=== PATIENT | female | born 1980 | race Caucasian/White ===

== ENCOUNTER 2017-02-18 23:53 | Emergency (ER) | payer OTHER ==
[2017-02-19] MEDS ORDERED: Lidocaine 1% 20 ML MDV INJECT ONE (00:02)
[2017-02-19] MEDS ORDERED: Diphtheria,Pertussis(Acell),Tetanus Vaccine 0.5 ML Syringe IM ONE (00:02)
--- NOTE | 2017-02-19 00:03 | EDM.PDOC ---
ED HPI GENERAL MEDICAL PROBLEM - General Chief Complaint: Laceration Stated Complaint: CUT FINGER Time Seen by Provider: 02/19/17 00:03 Source of Information: Reports: Patient - History of Present Illness INITIAL COMMENTS - FREE TEXT/NARRATIVE: HISTORY AND PHYSICAL: History of present illness: [] Patient cut her right index finger palmar aspect still phalanx 1.5 cm linear laceration, cut down a can while at work, wound bled well No fever nausea vomiting chills sweats Tendon function intact pre-and post suture flexor and extensor tendons intact again pre-and post Review of systems: As per history of present illness and below otherwise all systems reviewed and negative. Past medical history: As per history of present illness and as reviewed below otherwise noncontributory. Surgical history: As per history of present illness and as reviewed below otherwise noncontributory. Social history: No reported history of drug or alcohol abuse. Family history: As per history of present illness and as reviewed below otherwise noncontributory. Physical exam: HEENT: Atraumatic, normocephalic, pupils reactive, negative for conjunctival pallor or scleral icterus, mucous membranes moist, throat clear, neck supple, nontender, trachea midline. Lungs: Clear to auscultation, breath sounds equal bilaterally, chest nontender. Heart: S1S2, regular, negative for clicks, rubs, or JVD. Abdomen: Soft, nondistended, nontender. Negative for masses or hepatosplenomegaly. Negative for costovertebral tenderness. Pelvis: Stable nontender. Genitourinary: Deferred. Rectal: Deferred. Extremities: Atraumatic, negative for cords or calf pain. Neurovascular unremarkable. Neuro: Awake, alert, oriented. Cranial nerves II through XII unremarkable. Cerebellum unremarkable. Motor and sensory unremarkable throughout. Exam nonfocal. Diagnostics: [] Therapeutics: [] Tetanus status is updated Lidocaine #2 4-0 Prolene interrupted no complication no complaint Standard wound care Sutures out 10 days Impression: [] 1.5 cm linear laceration Definitive disposition and diagnosis as appropriate pending reevaluation and review of above. right index finger Pain Score (Numeric/FACES): 7 - Related Data Allergies Allergy/AdvReac Type Severity Reaction Status Date / Time No Known Allergies Allergy Verified 02/19/17 00:00 Home Meds: Home Meds OXcarbazepine [Oxcarbazepine] 300 mg PO BID 02/19/17 [History] Zonisamide [Zonegran] 400 mg PO BID 02/19/17 [History] ED ROS GENERAL - Review of Systems Review Of Systems: ROS reveals no pertinent complaints other than HPI. ED EXAM, SKIN/RASH Exam: See Below Course - Vital Signs Last Recorded V/S: Last Vital Signs Temp 36.7 C 02/19/17 00:01 Pulse 82 02/19/17 00:01 Resp 18 02/19/17 00:01 BP 135/92 H 02/19/17 00:01 Pulse Ox 98 02/19/17 00:01 - Orders/Labs/Meds Orders: Active Orders 24 hr Category Date Time Status Vaccines to be Administered [RC] PER UNIT ROUTINE Care 02/19/17 00:02 Ordered Meds: Medications Discontinued Medications Generic Name Dose Route Start Last Admin Trade Name Freq PRN Reason Stop Dose Admin Diphtheria/Tetanus/Acell Pertussis 0.5 ml 02/19/17 00:02 Adacel IM 02/19/17 00:03 .ONCE ONE Lidocaine HCl 20 ml 02/19/17 00:02 Xylocaine 1% INJECT 02/19/17 00:03 ONETIME ONE Departure - Departure Time of Disposition: 00:19 Disposition: Home, Self-Care 01 Condition: good Clinical Impression: Laceration - Discharge Information Forms: ED Department Discharge Additional Instructions: Standard wound care as instructed Keep wound clean and dry for 48 hours Bacitracin Telfa dressing Splint for comfort and protection Sutures out in 10 days Return to ER if redness warmth tenderness fever nausea vomiting chills sweats or pus drainage The following information is given to patients seen in the emergency department who are being discharged to home. This information is to outline your options for follow-up care. We provide all patients seen in our emergency department with a follow-up referral. The need for follow-up, as well as the timing and circumstances, are variable depending upon the specifics of your emergency department visit. If you don't have a primary care physician on staff, we will provide you with a referral. We always advise you to contact your personal physician following an emergency department visit to inform them of the circumstance of the visit and for follow-up with them and/or the need for any referrals to a consulting specialist. The emergency department will also refer you to a specialist when appropriate. This referral assures that you have the opportunity for follow-up care with a specialist. All of these measure are taken in an effort to provide you with optimal care, which includes your follow-up. Under all circumstances we always encourage you to contact your private physician who remains a resource for coordinating your care. When calling for follow-up care, please make the office aware that this follow-up is from your recent emergency room visit. If for any reason you are refused follow-up, please contact the [facility] emergency department at and asked to speak to the emergency department charge nurse. - My Orders Last 24 Hours: My Active Orders 02/19/17 00:02 Vaccines to be Administered [RC] PER UNIT ROUTINE - Assessment/Plan Last 24 Hours: My Active Orders 02/19/17 00:02 Vaccines to be Administered [RC] PER UNIT ROUTINE
[2017-02-19] MEDS ORDERED: Bacitracin Oint 1 GM U/D Packet TOP ONE (00:20)
[2017-02-19 00:48] VITALS: BP 167/99
== END 2017-02-19 00:40 | disposition home or self-care (01) ==
LOC: MW.ED 23:53
DX: S61.210A Laceration without foreign body of right index finger without damage to nail, initial encounter (principal); Y99.0 Civilian activity done for income or pay; Z23 Encounter for immunization; Z79.899 Other long term (current) drug therapy; W27.4XXA Contact with kitchen utensil, initial encounter
CPT/HCPCS: 12001; 90471; 90715; 99282; 99283-25

== ENCOUNTER 2018-03-12 11:37 | Emergency (ER) | payer OTHER ==
[2018-03-12 12:02] VITALS: BP 140/89
[2018-03-12 12:58] LABS: CHLORIDE,CL 104 mmol/L (98-107); SODIUM,NA 138 mmol/L (136-145)
--- NOTE | 2018-03-12 13:22 | EDM.PDOC ---
ED HPI GENERAL MEDICAL PROBLEM - General Chief Complaint: DIRECTOR SPECIALTY Problem Stated Complaint: 11 WEEKS WITH BLEEDING Time Seen by Provider: 03/12/18 11:42 - History of Present Illness INITIAL COMMENTS - FREE TEXT/NARRATIVE: HISTORY AND PHYSICAL: History of present illness: Patient is a 37-year-old female who presents to the emergency room today with complaints of vaginal bleeding during . She states yesterday evening she started to have some light spotting us morning. Denies any low back pain, cramping, nausea, vomiting, diarrhea, dysuria or constipation. Any fever, chills , chest pain or shortness of breath. She did see a provider at [facility] last week which confirmed . She believes she is approximately 11 weeks . 5, para 4. Denies any recent injury or trauma. Review of systems: As per history of present illness and below otherwise all systems reviewed and negative. Past medical history: As per history of present illness and as reviewed below otherwise noncontributory. Surgical history: As per history of present illness and as reviewed below otherwise noncontributory. Social history: No reported history of drug or alcohol abuse. Family history: As per history of present illness and as reviewed below otherwise noncontributory. Physical exam: General: Developed and well-nourished 37-year-old female. Alert and oriented. Nontoxic appearing and in no acute distress. HEENT: Atraumatic, normocephalic, pupils equal and reactive bilaterally, negative for conjunctival pallor or scleral icterus, mucous membranes moist, throat clear, neck supple, nontender, trachea midline. No drooling or trismus noted. No meningeal signs Lungs: Clear to auscultation, breath sounds equal bilaterally, chest nontender. Heart: S1S2, regular rate and rhythm without overt murmur Abdomen: Soft, nondistended, nontender. Negative for masses or hepatosplenomegaly. Negative for costovertebral tenderness. Pelvis: Stable nontender. Genitourinary: Declines. Rectal: Deferred. Skin: Intact, warm, dry. No lesions or rashes noted. Extremities: Atraumatic, negative for cords or calf pain. Neurovascular unremarkable. Neuro: Awake, alert, oriented. Cranial nerves II through XII unremarkable. Cerebellum unremarkable. Motor and sensory unremarkable throughout. Exam nonfocal. Notes: She has not previously had a ultrasound to confirm IUP. Lab work and transvaginal OB ultrasound will be conducted today. CBC and CMP are within normal limits with the exception of low potassium. AB/[place] [address]. Ultrasound shows intrauterine gestational sac and pole which correlates to 6 weeks gestational age. cardiac activity is not identified. This is suspicious for a failed early , however recommended hCG is ordered and will have [facility] followed this number closely. Due to the ER volume, was unable to do a pelvic exam upon her intial presentation, as all the beds were full. When an ER bed did open up to perform the pelvic exam portion, she declined - stating she was ready to "go home". Education was done on the importance of a pelvic exam, declines and would like to be discharged. Her labs and US were shared with the patient she voices understanding and is agreeable to plan of care. She denies any further questions at this time. Diagnostics: CBC, CMP, AB/Rh, transvaginal OB ultrasound Therapeutics: [] Impression: Threatened Plan: 1. Avoid placing anything in the vagina (sexual activity, tampons, etc...) until cleared by your OBGYN 2. Tylenol as needed for pain management. 3. Repeat Quantitative HCG needs to be done on : This can be done at [facility] or through our outpatient lab. Your OBGYN needs to follow this number closely, inform them of your visit and concerns. 4. Follow-up with your DIRECTOR SPECIALTY on Wednesday. Return to the ED as needed and as discussed. Definitive disposition and diagnosis as appropriate pending reevaluation and review of above. Duration: Day(s): Pelvic Pain Score (Numeric/FACES): 2 - Related Data Allergies Allergy/AdvReac Type Severity Reaction Status Date / Time No Known Allergies Allergy Verified 03/12/18 12:03 Home Meds: Home Meds OXcarbazepine [Oxcarbazepine] 300 mg PO BID 02/19/17 [History] Zonisamide [Zonegran] 400 mg PO BID 02/19/17 [History] Past Medical History DIRECTOR SPECIALTY History: Reports: Neurological History: Reports: Seizure - Infectious Disease History Infectious Disease History: Reports: Chicken Pox - Past Surgical History Female Surgical History: Reports: Section Neurological Surgical History: Reports: Other (See Below) Other Neurological Surgeries/Procedures: BRAIN TUMOR REMOVED Social & Family History - Family History Family Medical History: Noncontributory - Tobacco Use Smoking Status *Q: Never Smoker - Caffeine Use Caffeine Use: Reports: Coffee - Recreational Drug Use Recreational Drug Use: No ED ROS GENERAL - Review of Systems Review Of Systems: ROS reveals no pertinent complaints other than HPI. ED EXAM - Physical Exam Exam: See Below (See dictation) Course - Vital Signs Last Recorded V/S: Last Vital Signs Temp 97.9 F 03/12/18 11:58 Pulse 106 H 03/12/18 11:58 Resp 18 03/12/18 11:58 BP 140/89 03/12/18 11:58 Pulse Ox 99 03/12/18 11:58 - Orders/Labs/Meds Orders: Active Orders 24 hr Category Date Time Status OB Transvaginal [US] Stat Exams 03/12/18 11:46 Taken Labs: Laboratory Tests 03/12/18 03/12/18 03/12/18 Range/Units 12:06 12:06 12:06 WBC 9.40 (4.0-11.0) K/uL RBC 4.61 (4.30-5.90) M/uL Hgb 13.5 (12.0-16.0) g/dL Hct 38.0 (36.0-46.0) % MCV 82.4 (80.0-98.0) fL MCH 29.3 (27.0-32.0) pg MCHC 35.5 (31.0-37.0) g/dL RDW Std Deviation 39.4 (28.0-62.0) fl RDW Coeff of Marquis 13 (11.0-15.0) % Plt Count 178 (150-400) K/uL MPV 9.40 (7.40-12.00) fL Neut % (Auto) 75.1 (48.0-80.0) % Lymph % (Auto) 18.8 (16.0-40.0) % Carson % (Auto) 4.4 (0.0-15.0) % Eos % (Auto) 1.5 (0.0-7.0) % Baso % (Auto) 0.2 (0.0-1.5) % Neut # (Auto) 7.1 H (1.4-5.7) K/uL Lymph # (Auto) 1.8 (0.6-2.4) K/uL Carson # (Auto) 0.4 (0.0-0.8) K/uL Eos # (Auto) 0.1 (0.0-0.7) K/uL Baso # (Auto) 0.0 (0.0-0.1) K/uL Nucleated RBC % 0.0 /100WBC Nucleated RBCs # 0 K/uL Sodium 138 (136-145) mmol/L Potassium 3.2 L (3.5-5.1) mmol/L Chloride 104 (98-107) mmol/L Carbon Dioxide 22.5 (21.0-32.0) mmol/L BUN 11 (7.0-18.0) mg/dL Creatinine 0.9 (0.6-1.0) mg/dL Est Cr Clr Drug Dosing 79.34 mL/min Estimated GFR (MDRD) > 60.0 ml/min Glucose 137 H (74-106) mg/dL Calcium 8.6 (8.5-10.1) mg/dL Total Bilirubin 0.2 (0.2-1.0) mg/dL AST 13 L (15-37) IU/L ALT 19 (14-63) IU/L Alkaline Phosphatase 54 (46-116) U/L Total Protein 6.7 (6.4-8.2) g/dL Albumin 3.5 (3.4-5.0) g/dL Globulin 3.2 (2.0-3.5) g/dL Albumin/Globulin Ratio 1.1 L (1.3-2.8) HCG, Quant 45320.0 mIU/mL Blood Type A POSITIVE Departure - Departure Time of Disposition: 13:31 Disposition: Home, Self-Care 01 Clinical Impression: Threatened - Discharge Information Instructions: Threatened Miscarriage, [id number] Referrals: PCP,Unknown [Primary Care Provider] - Forms: ED Department Discharge Additional Instructions: The following information is given to patients seen in the emergency department who are being discharged to home. This information is to outline your options for follow-up care. We provide all patients seen in our emergency department with a follow-up referral. The need for follow-up, as well as the timing and circumstances, are variable depending upon the specifics of your emergency department visit. If you don't have a primary care physician on staff, we will provide you with a referral. We always advise you to contact your personal physician following an emergency department visit to inform them of the circumstance of the visit and for follow-up with them and/or the need for any referrals to a consulting specialist. The emergency department will also refer you to a specialist when appropriate. This referral assures that you have the opportunity for follow-up care with a specialist. All of these measure are taken in an effort to provide you with optimal care, which includes your follow-up. Under all circumstances we always encourage you to contact your private physician who remains a resource for coordinating your care. When calling for follow-up care, please make the office aware that this follow-up is from your recent emergency room visit. If for any reason you are refused follow-up, please contact the [facility] Emergency Department at and asked to speak to the emergency department charge nurse. [facility] [address] [place] [address] 1. Avoid placing anything in the vagina (sexual activity, tampons, etc...) until cleared by your OBGYN 2. Tylenol as needed for pain management. 3. Repeat Quantitative HCG needs to be done on : This can be done at [facility] or through our outpatient lab. Your OBGYN needs to follow this number closely, inform them of your visit and concerns. 4. Follow-up with your DIRECTOR SPECIALTY on Wednesday. Return to the ED as needed and as discussed. - My Orders Last 24 Hours: My Active Orders 03/12/18 11:46 OB Transvaginal [US] Stat - Assessment/Plan Last 24 Hours: My Active Orders 03/12/18 11:46 OB Transvaginal [US] Stat
--- NOTE | 2018-03-14 13:49 | US ---
EXAM DATE: 03/12/18 PATIENT'S AGE: 37 Patient: YANELY HSU Facility: [place], [place] Site . Site : 1980 Study: US OB Pelvis [id number]/[id number] 12:32:53 PM Ordering Physician: Doctor Lim Final Report: INDICATION: ABD PAIN/VAG BLEEDING 11 WEEKS TECHNIQUE: Scans performed with the transabdominal and endovaginal transducers. Grayscale, color Doppler and duplex Doppler images submitted. COMPARISON: None. FINDINGS: 1. There is an intrauterine gestational sac. Sac diameter is 1.3 cm which corresponds to 6 weeks 1 day. A tiny pole is seen measuring 3 mm in length which corresponds to 6 weeks 0 days. Definite cardiac activity is not seen. 2. According to the clinical dates, gestational age should be 11 weeks 1 day. 3. Both ovaries are normal size without masses or cysts. Normal vascularity in the ovaries. No free fluid. IMPRESSION: Intrauterine gestational sac and pole which correspond to approximately 6 weeks gestational age. cardiac activity is not identified. Findings are suspicious for failed early . However, recommend followup with beta HCG levels and repeat ultrasound in case the clinical dates are inaccurate. Dictated by Bernardo Hess MD @ 03/12/2018 1:28:52 PM Dictated by: Bernardo Hess MD @ 03/12/2018 13:28:57 (Electronic Signature) Report Signed by Proxy. HERB
== END 2018-03-12 13:41 | disposition home or self-care (01) ==
LOC: MW.ED 11:37
DX: O20.0 Threatened abortion (principal)
CPT/HCPCS: 36415; 76817; 76817-26; 80053; 84702; 85025; 86900; 86901; 99284-25

== ENCOUNTER 2019-03-14 16:32 | Inpatient (IN) | payer OTHER ==
[2019-03-14] MEDS ORDERED: Citric Acid/Sodium Citrate Solution 30 ML Cup PO ONE (18:55)
[2019-03-14] MEDS ORDERED: Sodium Chloride 0.9% 2.5 ML Syringe FLUSH PRN (18:55)
[2019-03-14] MEDS ORDERED: ceFAZolin 2 GM in Premix Bag 1 BAG IV ONE (18:55)
[2019-03-14] MEDS ORDERED: Sodium Chloride 0.9% 10 ML SDV IV PRN (18:55)
[2019-03-14] MEDS ORDERED: Sodium Chloride 0.9% 10 ML Syringe FLUSH PRN (18:55)
[2019-03-14] MEDS ORDERED: Oxytocin/0.9 % Sodium Chloride 30 UNIT/500 ML BAG IV SCH (19:00)
[2019-03-14] MEDS: Lactated Ringers 1,000 ML IV SCH ×2 (19:51→20:28)
--- NOTE | 2019-03-14 19:59 | PCM.PREANE ---
Preanesthetic Assessment - Anesthesia/Transfusion/Family Hx Anesthesia History: Prior Anesthesia Without Reaction Transfusion History: No Prior Transfusion(s) - Review of Systems General: No Symptoms Pulmonary: Cough Cardiovascular: No Symptoms Gastrointestinal: No Symptoms Neurological: No Symptoms Other: Reports: None - Physical Assessment Height: 1.65 m Weight: 105.233 kg ASA Class: 3E Mental Status: Alert & Oriented x3 Airway Class: Mallampati = 3 Dentition: Reports: [place](s) Thyro-Mental Finger Breadths: 3 Mouth Opening Finger Breadths: 3 ROM/Head Extension: Full Lungs: Clear to Auscultation, Normal Respiratory Effort Cardiovascular: Regular Rate, Regular Rhythm - Lab Values: Laboratory Last Values WBC 8.94 K/uL (4.0-11.0) 03/14/19 18:12 RBC 3.94 M/uL (4.30-5.90) L 03/14/19 18:12 Hgb 11.8 g/dL (12.0-16.0) L 03/14/19 18:12 Hct 34.8 % (36.0-46.0) L 03/14/19 18:12 MCV 88.3 fL (80.0-98.0) 03/14/19 18:12 MCH 29.9 pg (27.0-32.0) 03/14/19 18:12 MCHC 33.9 g/dL (31.0-37.0) 03/14/19 18:12 RDW Std Deviation 45.3 fl (28.0-62.0) 03/14/19 18:12 RDW Coeff of Marquis 14 % (11.0-15.0) 03/14/19 18:12 Plt Count 202 K/uL (150-400) 03/14/19 18:12 MPV 11.40 fL (7.40-12.00) 03/14/19 18:12 Nucleated RBC % 0.0 /100WBC 03/14/19 18:12 Nucleated RBCs # 0 K/uL 03/14/19 18:12 Urine Color YELLOW 03/14/19 16:35 Urine Appearance CLEAR 03/14/19 16:35 Urine pH 7.0 (5.0-8.0) 03/14/19 16:35 Ur Specific Fellows 1.020 (1.001-1.035) 03/14/19 16:35 Urine Protein TRACE mg/dL (NEGATIVE) H 03/14/19 16:35 Urine Glucose (UA) NEGATIVE mg/dL (NEGATIVE) 03/14/19 16:35 Urine Ketones NEGATIVE mg/dL (NEGATIVE) 03/14/19 16:35 Urine Occult Blood NEGATIVE (NEGATIVE) 03/14/19 16:35 Urine Nitrite NEGATIVE (NEGATIVE) 03/14/19 16:35 Urine Bilirubin NEGATIVE (NEGATIVE) 03/14/19 16:35 Urine Urobilinogen 0.2 EU/dL (<2.0) 03/14/19 16:35 Ur Leukocyte Esterase TRACE (NEGATIVE) H 03/14/19 16:35 - Allergies Allergies/Adverse Reactions: Allergies Allergy/AdvReac Type Severity Reaction Status Date / Time No Known Allergies Allergy Verified 03/14/19 16:53 - Anesthesia Plan Pre-Op Medication Ordered: Antacids (Bicitra. ) - Acknowledgements Anesthesia Type Planned: Spinal (risks and benefits of spinal anesthesia discussed in great details, including possible conversion to general anesthesia if spinal is inadequate. All questions answered, consent signed. 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: Musculoskeletal History: Reports: None Neurological History: Reports: Seizure (petit mal-"daily and not controlled", grand mal seizure, none for 7 years.) Psychiatric History: Reports: None Endocrine/Metabolic History: Reports: Obesity/BMI 30+ Hematologic History: Reports: None Immunologic History: Reports: None Oncologic (Cancer) History: Reports: None Dermatologic History: Reports: None - Infectious Disease History Infectious Disease History: Reports: Chicken Pox - Past Surgical History Head Surgeries/Procedures: Reports: Other (See Below) HEENT Surgical History: Reports: Oral Surgery Cardiovascular Surgical History: Reports: None Respiratory Surgical History: Reports: None GI Surgical History: Reports: None Female Surgical History: Reports: Section Endocrine Surgical History: Reports: None Neurological Surgical History: Reports: Other (See Below) Other Neurological Surgeries/Procedures: BRAIN TUMOR REMOVED Musculoskeletal Surgical History: Reports: None Oncologic Surgical History: Reports: None Dermatological Surgical History: Reports: None - SUBSTANCE USE Smoking Status *Q: Never Smoker Days Per Week of Alcohol Use: 0 Recreational Drug Use History: No - HOME MEDS Home Medications: Home Meds OXcarbazepine [Oxcarbazepine] 300 mg PO BID 02/19/17 [History] Zonisamide [Zonegran] 400 mg PO BID 02/19/17 [History] Alive Multivitamin 1 tab PO DAILY 03/14/19 [History] Calcium Carb/Vit D3/Minerals [Calcium 600+D Plus Minerals] 1 tab PO DAILY [History] Calcium Carbonate [Tums] 1 tab.chew CHEW ASDIRECTED PRN 03/14/19 [History] Vitamin E 1 tab PO DAILY 03/14/19 [History] - CURRENT (IN HOUSE) MEDS Current Meds: Current Medications Oxytocin/Sodium Chloride (Oxytocin 30 Unit/500 Ml-Ns) 30 unit in 500 mls @ 250 mls/hr IV TITRATE KIANNA Lactated Ringer's (Ringers, Lactated) 1,000 mls @ 500 mls/hr IV BOLUS KIANNA Sodium Chloride (Saline Flush) 10 ml FLUSH ASDIRECTED PRN PRN Reason: Keep Vein Open Sodium Chloride (Saline Flush) 2.5 ml FLUSH ASDIRECTED PRN PRN Reason: Keep Vein Open Sodium Chloride (Normal Saline) 10 ml IV ASDIRECTED PRN PRN Reason: IV Use Discontinued Medications Citric Acid/Sodium Citrate (Bicitra Solution) 30 ml PO ONETIME ONE Stop: 03/14/19 18:56 Cefazolin Sodium/Dextrose 2 gm (/ Premix) 50 mls @ 100 mls/hr IV ONETIME ONE Stop: 03/14/19 19:24
[2019-03-14] MEDS ORDERED: Scopolamine 1.5 MG Transdermal Patch ONE (20:15)
--- NOTE | 2019-03-14 20:17 | PCM.LDHP ---
L&D History of Present Illness - General Date of Service: 03/14/19 Admit Problem/Dx: Patient Status Order with Admit Dx/Problem 03/14/19 16:54 Patient Status [ADT] Routine 03/14/19 19:00 Patient Status [ADT] Routine Admission Diagnosis/Problem Admission Diagnosis/Problem Planned 03/14/19 20:14 38yo EDC 37 6/7wks PIH, A+, R-equivocal, GBS pos. RCS Source of Information: Patient History Limitations: Reports: No Limitations - History of Present Illness Improves with: Reports: None Worsens with: Reports: None Associated Symptoms: Reports: N - Related Data Allergies/Adverse Reactions: Allergies Allergy/AdvReac Type Severity Reaction Status Date / Time No Known Allergies Allergy Verified 03/14/19 16:53 Home Medications: Home Meds OXcarbazepine [Oxcarbazepine] 300 mg PO BID 02/19/17 [History] Zonisamide [Zonegran] 400 mg PO BID 02/19/17 [History] Alive Multivitamin 1 tab PO DAILY 03/14/19 [History] Calcium Carb/Vit D3/Minerals [Calcium 600+D Plus Minerals] 1 tab PO DAILY [History] Calcium Carbonate [Tums] 1 tab.chew CHEW ASDIRECTED PRN 03/14/19 [History] Vitamin E 1 tab PO DAILY 03/14/19 [History] Past Medical History HEENT History: Reports: Other (See Below) Other HEENT History: wears glasses Cardiovascular History: Reports: None Respiratory History: Reports: None Gastrointestinal History: Reports: Other (See Below) Other Gastrointestinal History: heartburn during Genitourinary History: Reports: None 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: Musculoskeletal History: Reports: None Neurological History: Reports: Seizure (petit mal-"daily and not controlled", grand mal seizure, none for 7 years.) Psychiatric History: Reports: None Endocrine/Metabolic History: Reports: Obesity/BMI 30+ Hematologic History: Reports: None Immunologic History: Reports: None Oncologic (Cancer) History: Reports: None Dermatologic History: Reports: None - Infectious Disease History Infectious Disease History: Reports: Chicken Pox - Past Surgical History Head Surgeries/Procedures: Reports: Other (See Below) HEENT Surgical History: Reports: Oral Surgery Cardiovascular Surgical History: Reports: None Respiratory Surgical History: Reports: None GI Surgical History: Reports: None Female Surgical History: Reports: Section Endocrine Surgical History: Reports: None Neurological Surgical History: Reports: Other (See Below) Other Neurological Surgeries/Procedures: BRAIN TUMOR REMOVED Musculoskeletal Surgical History: Reports: None Oncologic Surgical History: Reports: None Dermatological Surgical History: Reports: None Social & Family History - Family History Family Medical History: Noncontributory - Tobacco Use Smoking Status *Q: Never Smoker - Caffeine Use Caffeine Use: Reports: Coffee - Alcohol Use Days Per Week of Alcohol Use: 0 - Recreational Drug Use Recreational Drug Use: No H&P Review of Systems - Review of Systems: Review Of Systems: See Below General: Reports: No Symptoms HEENT: Reports: No Symptoms Pulmonary: Reports: No Symptoms Cardiovascular: Reports: No Symptoms Gastrointestinal: Reports: No Symptoms Genitourinary: Reports: No Symptoms Musculoskeletal: Reports: No Symptoms Skin: Reports: No Symptoms Psychiatric: Reports: No Symptoms Neurological: Reports: No Symptoms Hematologic/Lymphatic: Reports: No Symptoms Immunologic: Reports: No Symptoms L&D Exam - Exam Exam: See Below - Vital Signs Weight: 105.233 kg - OB Specific Contraction Intensity: Mild Movement: Active Heart Tones: Present Heart Rate (FHR) Variability: Moderate (6-25 bmp) Presentation: Vertex - Exam General: Alert, Oriented, Cooperative HEENT: Hearing Intact Lungs: Normal Respiratory Effort GI/Abdominal Exam: Soft, Non-Tender Rectal Exam: Deferred Genitourinary: Deferred. No: Cervical fluid, Vaginal bleeding Back Exam: Normal Inspection, Full Range of Motion Extremities: Normal Inspection, Normal Range of Motion, Non-Tender, No Pedal Edema Skin: Warm, Dry, Intact Neurological: Reflexes Equal Bilateral, Strength Equal Bilateral, Normal Gait, Normal Speech, Normal Tone, Sensation Intact Psychiatric: Alert, Normal Affect, Normal Mood - Patient Data Lab Results Last 24 hrs: Laboratory Results - last 24 hr 03/14/19 03/14/19 Range/Units 16:35 18:12 WBC 8.94 (4.0-11.0) K/uL RBC 3.94 L (4.30-5.90) M/uL Hgb 11.8 L (12.0-16.0) g/dL Hct 34.8 L (36.0-46.0) % MCV 88.3 (80.0-98.0) fL MCH 29.9 (27.0-32.0) pg MCHC 33.9 (31.0-37.0) g/dL RDW Std Deviation 45.3 (28.0-62.0) fl RDW Coeff of Marquis 14 (11.0-15.0) % Plt Count 202 (150-400) K/uL MPV 11.40 (7.40-12.00) fL Nucleated RBC % 0.0 /100WBC Nucleated RBCs # 0 K/uL Urine Color YELLOW Urine Appearance CLEAR Urine pH 7.0 (5.0-8.0) Ur Specific [place] 1.020 (1.001-1.035) Urine Protein TRACE H (NEGATIVE) mg/dL Urine Glucose (UA) NEGATIVE (NEGATIVE) mg/dL Urine Ketones NEGATIVE (NEGATIVE) mg/dL Urine Occult Blood NEGATIVE (NEGATIVE) Urine Nitrite NEGATIVE (NEGATIVE) Urine Bilirubin NEGATIVE (NEGATIVE) Urine Urobilinogen 0.2 (<2.0) EU/dL Ur Leukocyte Esterase TRACE H (NEGATIVE) Result Diagrams: 03/14/19 18:12 - Problem List (1) Supervision of normal IUP (intrauterine ) in multigravida SNOMED Code(s): 227426112, 727869343, 362008066 ICD Code: Z34.80 - ENCOUNTER FOR SUPRVSN OF NORMAL , UNSP TRIMESTER Status: Acute Priority: High Current Visit: Yes Qualifiers: Trimester: third trimester Qualified Code(s): Z34.83 - Encounter for supervision of other normal , third trimester (2) History of delivery, currently SNOMED Code(s): 713817272, 004084917 ICD Code: O34.219 - MATERNAL CARE FOR UNSP TYPE SCAR FROM PREVIOUS DEL Status: Acute Priority: High Current Visit: Yes (3) Hypertension affecting in third trimester SNOMED Code(s): 882028053, 536233235 ICD Code: O16.3 - UNSPECIFIED MATERNAL HYPERTENSION, THIRD TRIMESTER Status : Acute Priority: High Current Visit: Yes Problem List Initiated/Reviewed/Updated: Yes Orders Last 24hrs: Active Orders 24 hr Category Date Time Status Patient Status [ADT] Routine ADT 03/14/19 16:54 Active Patient Status [ADT] Routine ADT 03/14/19 19:00 Active Non Stress Test [RC] PER UNIT ROUTINE Care 03/14/19 16:54 Active Non Stress Test [RC] PER UNIT ROUTINE Care 03/14/19 19:00 Active Notify Provider Vital Signs [RC] PRN Care 03/14/19 19:02 Active Procedure Site Prep Instruct [RC] ASDIRECTED Care 03/14/19 19:00 Active Up ad Katie [RC] ASDIRECTED Care 03/14/19 16:54 Active Up ad Katie [RC] ASDIRECTED Care 03/14/19 19:00 Active Vaginal Exam [RC] Click to Edit Care 03/14/19 16:54 Active Verify Patient Consent Obtain [RC] ASDIRECTED Care 03/14/19 19:00 Active Vital Signs [RC] PER UNIT ROUTINE Care 03/14/19 16:54 Active Vital Signs [RC] PER UNIT ROUTINE Care 03/14/19 19:00 Active TYPE AND SCREEN [BBK] Routine Lab 03/14/19 19:37 Received Lactated Ringers [Ringers, Lactated] 1,000 ml Med 03/14/19 19:00 Active IV BOLUS Oxytocin/0.9 % Sodium Chloride [Oxytocin 30 Unit/500 ML Med 03/14/19 19:00 Active -NS] 30 unit in 500 ml IV TITRATE Sodium Chloride 0.9% [Normal Saline] Med 03/14/19 18:55 Active 10 ml IV ASDIRECTED PRN Sodium Chloride 0.9% [Saline Flush] Med 03/14/19 18:55 Active 10 ml FLUSH ASDIRECTED PRN Sodium Chloride 0.9% [Saline Flush] Med 03/14/19 18:55 Active 2.5 ml FLUSH ASDIRECTED PRN Peripheral IV Insertion Adult [OM.PC] Routine Oth 03/14/19 19:00 Ordered Schedule Procedure [COMM] Per Unit Routine Oth 03/14/19 19:00 Ordered Resuscitation Status Routine Resus Stat 03/14/19 18:55 Ordered Medication Orders Oxytocin/Sodium Chloride (Oxytocin 30 Unit/500 Ml-Ns) 30 unit in 500 mls @ 250 mls/hr IV TITRATE KIANNA Lactated Ringer's (Ringers, Lactated) 1,000 mls @ 500 mls/hr IV BOLUS KIANNA Last Admin: 03/14/19 19:51 Dose: 500 mls/hr Sodium Chloride (Saline Flush) 10 ml FLUSH ASDIRECTED PRN PRN Reason: Keep Vein Open Sodium Chloride (Saline Flush) 2.5 ml FLUSH ASDIRECTED PRN PRN Reason: Keep Vein Open Sodium Chloride (Normal Saline) 10 ml IV ASDIRECTED PRN PRN Reason: IV Use Assessment/Plan Comment:: RCS A: 38yo EDC 37 6/7wks PIH, A+, R-equivocal, GBS pos. RCS P: Admit, repeat C/S.
[2019-03-14] MEDS ORDERED: Morphine PF 10 MG/10 ML SDV ONE (20:25)
[2019-03-14] MEDS ORDERED: ceFAZolin 1 GM Vial ONE (20:31)
[2019-03-14] MEDS ORDERED: Acetaminophen/oxyCODONE 325-5 MG Tab PO PRN ×3 (21:09→21:28)
[2019-03-14] MEDS ORDERED: Nalbuphine 10 MG/1 ML Vial IVPUSH PRN (21:09)
[2019-03-14] MEDS ORDERED: fentaNYL 100 MCG/2 ML SDV IVPUSH PRN (21:09)
[2019-03-14] MEDS ORDERED: Oxytocin 10 Units/1 ML SDV ONE (21:14)
[2019-03-14] MEDS ORDERED: Ondansetron 4 MG/2 ML SDV ONE (21:18)
[2019-03-14] MEDS ORDERED: Octyl 2-Cyanoacrylate 1 Tube ONE (21:18)
[2019-03-14] MEDS ORDERED: Ketorolac 30 MG/ML SDV ONE (21:18)
[2019-03-14] MEDS ORDERED: diphenhydrAMINE 50 MG/ML SDV IVPUSH PRN (21:28)
[2019-03-14] MEDS ORDERED: Ibuprofen 800 MG Tab PO PRN (21:28)
[2019-03-14] MEDS ORDERED: Ondansetron 4 MG/2 ML SDV IVPUSH PRN (21:28)
[2019-03-14] MEDS ORDERED: Bisacodyl 10 MG Supp RECTAL PRN (21:28)
[2019-03-14] MEDS ORDERED: Lanolin 100% Cream 7 GM Tube TOP PRN (21:28)
[2019-03-14] MEDS ORDERED: Acetaminophen/oxyCODONE 325-5 MG Tab PO ONE (21:30)
[2019-03-14] MEDS ORDERED: Lactated Ringers 1,000 ML IV SCH (21:30)
--- NOTE | 2019-03-14 21:31 | PCM.OPNOTE ---
- General Post-Op/Procedure Note Date of Surgery/Procedure: 03/14/19 Operative Procedure(s): Repeat C/section. Pre Op Diagnosis: IUP37+5, previous C/section. Post-Op Diagnosis: Same Anesthesia Technique: Spinal Primary Surgeon: Alonso Pryor Spray Gun Repairer Helper: Noreen Munoz EBL in mLs: 600 Complications: None Condition: Good
--- NOTE | 2019-03-14 22:17 | PCM.POSTAN ---
POST ANESTHESIA ASSESSMENT - MENTAL STATUS Mental Status: Alert, Oriented - RESPIRATORY Respiratory Status: Respiratory Rate WNL, Airway Patent, O2 Saturation Stable - CARDIOVASCULAR CV Status: Pulse Rate WNL, Blood Pressure Stable - GASTROINTESTINAL GI Status: No Symptoms - POST OP HYDRATION Hydration Status: Adequate & Stable - OBSERVATIONS Free Text/Narrative:: The patient has no complaints at this time. There were no apparent anesthetic complications at this time .
--- NOTE | 2019-03-14 22:42 | OR ---
SURGEON: Alonso Pryor MD DATE OF PROCEDURE: 03/14/2019 PREOPERATIVE DIAGNOSES: 1. Intrauterine 37 plus 5. 2. Previous section. 3. Nonreactive NST. 4. Elevated blood pressure. OPERATION PERFORMED: Repeat low-transverse section. PRIMARY SURGEON: Alonso Pryor MD. GIFTED TEACHER: Noreen Munoz. ANESTHESIA: Spinal, Dr. Gonzalez. ESTIMATED BLOOD LOSS: 600 mL. COMPLICATIONS: None. FINDING: Male fetus. score reported 8 and 9. Normal uterus, tubes, and ovaries. INDICATION: This patient has advanced maternal age of 38. She had a previous section and she had two previous vaginal deliveries, she elected to have a repeat section in this and she is scheduled for elective repeat next Wednesday. However, the patient today is in the clinic, and she has elevated blood pressure, her blood pressure is 170/102. She was sent to Labor and Delivery for monitoring and blood pressure continued to be fluctuated up and down. However, the patient has a nonreactive NST. Because of this situation, I elected after discussed with the patient and her and they consented to go ahead and repeat her section today. PROCEDURE IN DETAIL: The patient was brought to the OR, properly identified. After adequate level of spinal anesthesia with a Whitten catheter in the bladder, patient was prepped and draped in sterile fashion as usual. Low transverse Pfannenstiel skin incision done. Evin fascia and rectus fascia were opened in the direction of the incision. The 2 recti muscles . Peritoneal cavity was entered. Bladder flap was raised in the usual manner pushing the bladder away from the lower uterine segment. A low transverse uterine incision was done and extended manually with the hand. The fetus was in a vertex position, delivered without any problem, cried immediately, handed to the farm laborer who was present at the time of the delivery. The score later on reported to be 8 and 9. The weight is not available. The placenta delivered spontaneous, complete, and intact, and repair of the lower uterine segment done with 2-0 Vicryl continuous interlocking in 2 layers. Reperitonealization done with 3-0 Vicryl continuous. The peritoneal cavity was evacuated completely from all blood and blood clot and closed with 3-0 Vicryl continuous. The rectus fascia was closed with #1 PDS double strand continuous, and the Evin's fascia with 3-0 Vicryl continuous. The skin closed with skin clips, Insorb, and Dermabond. Instrument and sponge count was correct. The patient tolerated the procedure well, went to recovery room in stable general condition. STANISLAW HERNANDEZ /[id number]
[2019-03-15] MEDS: Ketorolac 30 MG/ML SDV IVPUSH SCH ×5 (03:49→20:30)
--- NOTE | 2019-03-15 06:32 | PCM48HPAN ---
Post Anesthesia Note - EVALUATION WITHIN 48HRS OF ANESTHETIC Vital Signs in Normal Range: Yes Patient Participated in Evaluation: Yes Respiratory Function Stable: Yes Airway Patent: Yes Cardiovascular Function Stable: Yes Hydration Status Stable: Yes Pain Control Satisfactory: Yes Nausea and Vomiting Control Satisfactory: Yes Mental Status Recovered: Yes Resp Rate: 16 - COMMENTS/OBSERVATIONS Free Text/Narrative:: The patient has no complaints, other than itching. There were no apparent anesthetic complications at this time.
--- NOTE | 2019-03-15 08:32 | PCM.PNPP ---
- General Info Date of Service: 03/15/19 Admission Dx/Problem (Free Text): Patient Status Order with Admit Dx/Problem 03/14/19 16:54 Patient Status [ADT] Routine 03/14/19 19:00 Patient Status [ADT] Routine Admission Diagnosis/Problem Admission Diagnosis/Problem Planned 03/14/19 20:14 38yo EDC 37 6/7wks PIH, A+, R-equivocal, GBS pos. RCS Functional Status: Reports: Pain Controlled, Tolerating Diet, Other (gonzales) - Review of Systems General: Reports: No Symptoms HEENT: Reports: No Symptoms Pulmonary: Reports: No Symptoms Cardiovascular: Reports: No Symptoms Gastrointestinal: Reports: No Symptoms Genitourinary: Reports: No Symptoms Musculoskeletal: Reports: No Symptoms Skin: Reports: No Symptoms Neurological: Reports: No Symptoms Psychiatric: Reports: No Symptoms - General Info Date of Service: 03/15/19 - Patient Data Vital Signs - Most Recent: Last Vital Signs Temp 36.6 C 03/15/19 07:15 Pulse 68 03/15/19 07:15 Resp 18 03/15/19 07:15 BP 137/76 03/15/19 07:15 Pulse Ox 94 L 03/15/19 07:15 Weight - Most Recent: 105.233 kg I&O - Last 24 Hours: Intake & Output 03/14/19 03/15/19 03/15/19 22:59 06:59 14:59 Intake Total 1650 Output Total 250 500 Balance 1400 -500 Lab Results - Last 24 Hours: Laboratory Results - last 24 hr 03/14/19 03/14/19 03/14/19 Range/Units 16:35 18:12 19:37 WBC 8.94 (4.0-11.0) K/uL RBC 3.94 L (4.30-5.90) M/uL Hgb 11.8 L (12.0-16.0) g/dL Hct 34.8 L (36.0-46.0) % MCV 88.3 (80.0-98.0) fL MCH 29.9 (27.0-32.0) pg MCHC 33.9 (31.0-37.0) g/dL RDW Std Deviation 45.3 (28.0-62.0) fl RDW Coeff of Marquis 14 (11.0-15.0) % Plt Count 202 (150-400) K/uL MPV 11.40 (7.40-12.00) fL Nucleated RBC % 0.0 /100WBC Nucleated RBCs # 0 K/uL Urine Color YELLOW Urine Appearance CLEAR Urine pH 7.0 (5.0-8.0) Ur Specific [place] 1.020 (1.001-1.035) Urine Protein TRACE H (NEGATIVE) mg/dL Urine Glucose (UA) NEGATIVE (NEGATIVE) mg/dL Urine Ketones NEGATIVE (NEGATIVE) mg/dL Urine Occult Blood NEGATIVE (NEGATIVE) Urine Nitrite NEGATIVE (NEGATIVE) Urine Bilirubin NEGATIVE (NEGATIVE) Urine Urobilinogen 0.2 (<2.0) EU/dL Ur Leukocyte Esterase TRACE H (NEGATIVE) Blood Type A POSITIVE Antibody Screen NEGATIVE 03/15/19 Range/Units 05:45 WBC (4.0-11.0) K/uL RBC (4.30-5.90) M/uL Hgb 10.6 L (12.0-16.0) g/dL Hct 31.7 L (36.0-46.0) % MCV (80.0-98.0) fL MCH (27.0-32.0) pg MCHC (31.0-37.0) g/dL RDW Std Deviation (28.0-62.0) fl RDW Coeff of Marquis (11.0-15.0) % Plt Count (150-400) K/uL MPV (7.40-12.00) fL Nucleated RBC % /100WBC Nucleated RBCs # K/uL Urine Color Urine Appearance Urine pH (5.0-8.0) Ur Specific [place] (1.001-1.035) Urine Protein (NEGATIVE) mg/dL Urine Glucose (UA) (NEGATIVE) mg/dL Urine Ketones (NEGATIVE) mg/dL Urine Occult Blood (NEGATIVE) Urine Nitrite (NEGATIVE) Urine Bilirubin (NEGATIVE) Urine Urobilinogen (<2.0) EU/dL Ur Leukocyte Esterase (NEGATIVE) Blood Type Antibody Screen Med Orders - Current: Current Medications Bisacodyl (Dulcolax) 10 mg RECTAL ONETIME PRN PRN Reason: Constipation Diphenhydramine HCl (Benadryl) 25 mg IVPUSH Q6H PRN PRN Reason: Itching or Nausea Docusate Sodium (Colace) 100 mg PO BID ON LICENSE OF [facility] Emollient Ointment (Lansinoh Hpa) 0 gm TOP ASDIRECTED PRN PRN Reason: Sore Nipples Fentanyl (Sublimaze) 50 mcg IVPUSH Q5M PRN PRN Reason: Pain (severe 7-10) Stop: 03/15/19 21:10 Oxytocin/Sodium Chloride (Oxytocin 30 Unit/500 Ml-Ns) 30 unit in 500 mls @ 250 mls/hr IV TITRATE ON LICENSE OF [facility] Lactated Ringer's (Ringers, Lactated) 1,000 mls @ 500 mls/hr IV BOLUS ON LICENSE OF [facility] Last Admin: 03/14/19 20:28 Dose: 500 mls/hr Lactated Ringer's (Ringers, Lactated) 1,000 mls @ 125 mls/hr IV ASDIRECTED ON LICENSE OF [facility] Last Admin: 03/15/19 00:47 Dose: 125 mls/hr Ibuprofen (Motrin) 800 mg PO Q8H PRN PRN Reason: mild pain or fever Ketorolac Tromethamine (Toradol) 30 mg IVPUSH Q6H ON LICENSE OF [facility] Stop: 03/15/19 21:31 Last Admin: 03/15/19 03:49 Dose: 30 mg Nalbuphine HCl (Nubain) 2.5 mg IVPUSH Q3H PRN PRN Reason: Pruritis Stop: 03/15/19 21:10 Ondansetron HCl (Zofran) 4 mg IVPUSH Q4H PRN PRN Reason: Nausea/Vomiting Oxycodone/Acetaminophen (Percocet 325-5 Mg) 1 tab PO Q4H PRN PRN Reason: Pain (moderate 4-6) Oxycodone/Acetaminophen (Percocet 325-5 Mg) 2 tab PO Q4H PRN PRN Reason: Pain (moderate 4-6) Sodium Chloride (Saline Flush) 10 ml FLUSH ASDIRECTED PRN PRN Reason: Keep Vein Open Sodium Chloride (Saline Flush) 2.5 ml FLUSH ASDIRECTED PRN PRN Reason: Keep Vein Open Sodium Chloride (Normal Saline) 10 ml IV ASDIRECTED PRN PRN Reason: IV Use Discontinued Medications Cefazolin Sodium (Ancef) Confirm Administered Dose 2 gm .ROUTE .STK-MED ONE Stop: 03/14/19 20:32 Citric Acid/Sodium Citrate (Bicitra Solution) 30 ml PO ONETIME ONE Stop: 03/14/19 18:56 Last Admin: 03/14/19 20:06 Dose: 30 ml Cefazolin Sodium/Dextrose 2 gm (/ Premix) 50 mls @ 100 mls/hr IV ONETIME ONE Stop: 03/14/19 19:24 Ibuprofen (Motrin) 800 mg PO Q8H PRN PRN Reason: mild pain or fever Ketorolac Tromethamine (Toradol) Confirm Administered Dose 30 mg .ROUTE .STK- MED ONE Stop: 03/14/19 21:19 Morphine Sulfate (Duramorph Pf) Confirm Administered Dose 10 mg .ROUTE .STK-MED ONE Stop: 03/14/19 20:26 Octyl Cyanoacrylate (Dermabond Advance) Confirm Administered Dose 1 applic .ROUTE .STK-MED ONE Stop: 03/14/19 21:19 Ondansetron HCl (Zofran) Confirm Administered Dose 4 mg .ROUTE .STK-MED ONE Stop: 03/14/19 21:19 Oxycodone/Acetaminophen (Percocet 325-5 Mg) 1 tab PO ONETIME PRN PRN Reason: Pain (moderate 4-6) Oxycodone/Acetaminophen (Percocet 325-5 Mg) 1 tab PO ONETIME ONE Stop: 03/14/19 21:31 Oxytocin (Pitocin) Confirm Administered Dose 40 unit .ROUTE .STK-MED ONE Stop: 03/14/19 21:15 Scopolamine (Transderm-Scop) Confirm Administered Dose 1.5 mg .ROUTE .STK-MED ONE Stop: 03/14/19 20:16 - Infant Interaction Infant Disposition, : to Nursery Interaction: Unable to Hold Infant at this Time Feeding: Attempted ; Nursed Fair/Poor, Other (see below) ( has abdominal bloating, OG tube placed, chest and abd x-rays to be done, vomiting bile) Support Person: - Recovery Exam Fundal Tone: Firm Fundal Level: 1 Fingerbreadths Below Umbilicus Fundal Placement: Midline Lochia Amount: Scant Lochia Color: Rubra/Red Perineum Description: Intact, Minimal Bruising/Swelling Episiotomy/Laceration: None Bladder Status: Indwelling Catheter in Place Urinary Elimination: Indwelling Catheter - Exam General: Alert, Oriented, Cooperative, No Acute Distress Lungs: Normal Respiratory Effort GI/Abdominal Exam: Soft, Non-Tender Extremities: Normal Inspection, Normal Range of Motion, Non-Tender Skin: Warm, Dry, Intact Wound/Incisions: Healing Well, No Drainage. No: Erythema Neurological: No New Focal Deficit, Normal Speech, Normal Tone, Strength Equal Bilateral Psy/Mental Status: Alert, Normal Affect, Normal Mood - Problem List & Annotations (1) Supervision of normal IUP (intrauterine ) in multigravida SNOMED Code(s): 810040664, 910004128, 919865446 Code(s): Z34.80 - ENCOUNTER FOR SUPRVSN OF NORMAL , UNSP TRIMESTER Status: Acute Priority: High Current Visit: Yes Qualifiers: Trimester: third trimester Qualified Code(s): Z34.83 - Encounter for supervision of other normal , third trimester (2) History of delivery, currently SNOMED Code(s): 780354014, 172039527 Code(s): O34.219 - MATERNAL CARE FOR UNSP TYPE SCAR FROM PREVIOUS DEL Status: Acute Priority: High Current Visit: Yes (3) Hypertension affecting in third trimester SNOMED Code(s): 139006118, 033491522 Code(s): O16.3 - UNSPECIFIED MATERNAL HYPERTENSION, THIRD TRIMESTER Status : Acute Priority: High Current Visit: Yes (4) delivery due to maternal disorder SNOMED Code(s): 691015588 Code(s): O99.89 - OTH DISEASES AND CONDITIONS COMPL PREG/CHLDBRTH Status: Acute Priority: High Current Visit: Yes - Problem List Review Problem List Initiated/Reviewed/Updated: Yes - Plan Plan:: RCS A: 38yo EDC 37 6/7wks PIH, A+, R-equivocal, GBS pos. RCS P: Admit, repeat C/S. PPD#1 A: VSS, AF, incision dry/intact, FF-2bu, lochia small, stable P: continue pp plan of care
[2019-03-15] MEDS ORDERED: Measles, Mumps & Rubella Vaccine 0.5 ML SDV SUBCUT ONE (08:35)
[2019-03-15] MEDS: Docusate Sodium 100 MG Cap PO SCH ×2 (09:37→20:19)
[2019-03-15] MEDS ORDERED: OXcarbazepine 300 MG Tab PO SCH (10:30)
[2019-03-15 19:48] VITALS: BP 132/72
[2019-03-16] MEDS ORDERED: Ibuprofen 800 MG Tab PO PRN (02:30)
== END 2019-03-15 20:45 | disposition home or self-care (01) | DRG 788 ==
LOC: MW.OBCHECK 16:32 → MW.OB 16:34 → MW.OBCHECK 19:00 → MW.OB 19:00
PROVIDERS: ADMIT Obstetrics & Gynecology; ATTEND Obstetrics & Gynecology
PROC: 10D00Z1 Extraction of Products of Conception, Low, Open Approach (ICD-10-PCS; principal; 2019-03-14)
DX: O34.211 Maternal care for low transverse scar from previous cesarean delivery (principal); O99.824 Streptococcus B carrier state complicating childbirth; O99.214 Obesity complicating childbirth; E66.9 Obesity, unspecified; O99.89 Other specified diseases and conditions complicating pregnancy, childbirth and the puerperium; O16.4 Unspecified maternal hypertension, complicating childbirth; Z37.0 Single live birth; Z3A.37 37 weeks gestation of pregnancy
CPT/HCPCS: 36415; 51702; 81003; 85014; 85018; 85027; 86850; 86900; 86901; A9270-GY; J0690; J1885; J2270; J2300; J2405; J2590; J7120